=== PATIENT | female | born 1935 | race Caucasian/White ===

== ENCOUNTER → 2017-06-08 | Outpatient (CLI) | payer MEDICARE ==
[~2017-06-08] MED LIST: ASPI1TAB PO; CLON0.5T PO; GLUCTAB6 PO; LIPI20TA PO; NORV5TAB PO; OMEP40CA2 PO; PERCOCET PO; TYLE325T5 PO; VITA500C10 PO; WARF5VL PO; ZOFR4SOL PO; citracal PO
[2017-06-08 13:14] LABS: BLOOD UREA NITROGEN 13 MG/DL (7-18); CREATININE FOR GFR 0.43 MG/DL (0.55-1.02); GLOMERULAR FILTRATION RATE > 60.0 (>32)
== END ==
LOC: M LAB 11:32
PROVIDERS: ATTEND Otolaryngology
DX: R22.1 Localized swelling, mass and lump, neck (principal)

== ENCOUNTER → 2017-06-22 | Outpatient (CLI) | payer MEDICARE ==
[~2017-06-22] MED LIST changes: +ISOVUE-370 76% 100ML VIAL (Q9967) As Ordered ONE
--- NOTE | 2017-06-22 15:39 | REP ---
Soft tissue CT neck without and with IV contrast: History: Localized swelling. Mass or lump in the neck. Intermittent right facial swelling. Question stone or neoplasm. CT contrast dose: 75 mL of intravenous Isovue [address] findings: The initial noncontrast CT study of the neck soft tissues demonstrate normal symmetric submandibular and parotid glands. There are some tiny dystrophic calcifications in the inferior aspect of the parotid gland on the right and left. There is no evidence of sialolithiasis on either side however. Postcontrast enhanced imaging shows no abnormal contrast enhancement. No abnormal fluid collection is seen. No evidence of adenopathy is noted. There is enlargement of the right thyroid lobe with peripheral heterogeneous enhancement in a right thyroid nodule inferiorly. This measures 3.7 x 3.8 x 2.7 cm. The left thyroid lobe is homogeneous. No vascular abnormality is appreciated. Epiglottis is unremarkable. No glottic or subglottic airway lesion is seen. 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 No bony destructive lesion is appreciated. There are unerupted wisdom teeth in the mandible bilaterally. Impression: 3.7 cm right thyroid nodule. No evidence of sialolithiasis or sialoadenitis seen. No other mass or adenopathy seen. Signed by Zoltan Elam MD 06/22/2017 04:03 P
== END ==
LOC: M RAD 13:22
PROVIDERS: ATTEND Otolaryngology
DX: R22.1 Localized swelling, mass and lump, neck (principal); E04.1 Nontoxic single thyroid nodule
CPT/HCPCS: 70492; Q9967

== ENCOUNTER → 2017-06-30 | Outpatient (CLI) | payer MEDICARE ==
[~2017-06-30] MED LIST changes: -ISOVUE-370 76% 100ML VIAL (Q9967) As Ordered ONE
== END ==
LOC: M LAB 11:50
PROVIDERS: ATTEND Otolaryngology
DX: E04.1 Nontoxic single thyroid nodule (principal)

== ENCOUNTER → 2017-07-14 | Outpatient (CLI) | payer MEDICARE | LOC: M RADPRO 10:30 | DX: E04.1 Nontoxic single thyroid nodule (principal); I10 Essential (primary) hypertension; E11.9 Type 2 diabetes mellitus without complications; M19.90 Unspecified osteoarthritis, unspecified site; G47.30 Sleep apnea, unspecified; K21.9 Gastro-esophageal reflux disease without esophagitis; K11.20 Sialoadenitis, unspecified; Z79.82 Long term (current) use of aspirin; Z79.84 Long term (current) use of oral hypoglycemic drugs; Z79.899 Other long term (current) drug therapy | CPT/HCPCS: 10022 ==